=== PATIENT | female | born 1955 | race Two or more races ===

== ENCOUNTER 2020-08-03 10:35 | Inpatient (IN) | payer MEDICAID, OTHER ==
[~2020-08-03] VITALS: Ht 142.2 cm; Wt 82.0 kg
[2020-08-03 11:51] LABS: Basophils # (auto) 0 10 ^3/uL (0-0.2); Eosinophils # (auto) 0.4 10 ^3/uL (0-0.8); Lymphocytes # (auto) 1.8 10 ^3/uL (0.4-5.4); Monocytes # (auto) 0.4 10 ^3/uL (0-1.3); White Blood Cell 4.6 10^3/uL (4.4-10.8)
[2020-08-03 11:53] LABS: Eosinophils % (auto) 9.1 % (0.0-7.0); Hematocrit 41.6 % (36.0-46.0); Hemoglobin 14.2 g/dL (12.2-16.2); Lymphocytes % (auto) 38.8 % (10.0-50.0); Mean Corpuscular Hemoglobin 34.7 pg (28.0-32.0); Mean Corpuscular Hgb Conc. 34.1 g/dL (32.0-36.0); Mean Corpuscular Volume 101.9 fL (80.0-100.0); Monocytes % (auto) 8.1 % (0.0-12.0); Nucleated Red Blood Cells % 0.4 %; Platelet Count (auto) 185 10^3/uL (140-450); Red Blood Cells 4.08 10^6/uL (4.0-5.20); Red Cell Distribution Width 13.1 % (11.8-14.3)
[2020-08-03 11:55] LABS: Urine Bacteria FEW /hpf (None Seen); Urine Blood Negative /uL (Negative); Urine Specific Gravity 1.012 (1.001-1.035); Urine WBC 6 /hpf (0 - 5)
[2020-08-03] MEDS ORDERED: DOPamine 1600MCG/ML D5W 250 ML IV ONE ×2 (12:15→22:55)
[2020-08-03 12:19] LABS: Albumin 3.2 g/dL (3.4-5.0); Anion Gap 3 (5-15); Blood Urea Nitrogen 22 mg/dL (7-18); Calcium 8.5 mg/dL (8.5-10.1); Carbon Dioxide 29 mmol/L (21-32); Chloride 110 mmol/L (98-107); Glucose 82 mg/dL (74-106); Potassium 4.2 mmol/L (3.5-5.1); Sodium 142 mmol/L (136-145)
[2020-08-03 12:24] LABS: Alanine Aminotransferase 42 U/L (13-56); Alkaline Phosphatase 158 U/L (45-117); Aspartate Aminotransferase 24 U/L (15-37); BUN/Creatinine Ratio 23.2; Bilirubin, Total 0.9 mg/dL (0.2-1.0); GFR African American 76 mL/min; GFR Non-African American 63 mL/min; Total Protein 7.3 g/dL (6.4-8.2)
[2020-08-03] MEDS ORDERED: HYDROcodone-ACET 5/325MG TAB PO PRN (16:00)
[2020-08-03] MEDS ORDERED: MORPHINE SULF INJ 2 MG/ML SYRINGE 1ML IV PRN ×2 (16:00)
[2020-08-03] MEDS ORDERED: NITROGLYCERIN 0.4 MG SL TAB SL PRN (16:00)
[2020-08-03] MEDS ORDERED: DOCUSATE SOD 100 MG CAP PO PRN (16:00)
[2020-08-03] MEDS ORDERED: ACETAMINOPHEN 500 MG TAB PO PRN (16:00)
[2020-08-03 16:59] LABS: Cholesterol 213 mg/dL (< 200); HDL Cholesterol 33 mg/dL (40-59); LDL Cholesterol 145 mg/dL (< 100); Triglycerides 341 mg/dL (< 150)
[2020-08-03] MEDS: ONDANSETRON HCL 4 MG/2 ML VIAL IV PRN (20:55)
[2020-08-03] MEDS ORDERED: PROMETHAZINE HCL 25 MG/ML 1ML IV ONE (23:30)
[2020-08-04] VITALS (82 sets, daily range): BP systolic 50–160; BP diastolic 4–91
[2020-08-04] MEDS ORDERED: DOPamine 1600MCG/ML D5W 250 ML IV SCH ×2 (00:15→03:45)
[2020-08-04] MEDS: DOPamine 1600MCG/ML D5W 250 ML IV SCH ×4 (00:18→17:19)
[2020-08-04] MEDS: ONDANSETRON HCL 4 MG/2 ML VIAL IV PRN (08:31)
[2020-08-04 09:08] LABS: Basophils # (auto) 0 10 ^3/uL (0-0.2); Basophils % (auto) 0.5 % (0.0-2.0); Eosinophils # (auto) 0 10 ^3/uL (0-0.8); Hemoglobin 14.7 g/dL (12.2-16.2); Neutrophils # (auto) 6.6 10 ^3/uL (1.6-8.6)
[2020-08-04 09:11] LABS: Eosinophils % (auto) 0.4 % (0.0-7.0); Lymphocytes % (auto) 12.2 % (10.0-50.0); Mean Corpuscular Hemoglobin 35.1 pg (28.0-32.0); Mean Corpuscular Hgb Conc. 34.2 g/dL (32.0-36.0); Mean Corpuscular Volume 102.7 fL (80.0-100.0); Monocytes # (auto) 0.7 10 ^3/uL (0-1.3); Monocytes % (auto) 8.6 % (0.0-12.0); Neutrophils % (auto) 78.3 % (37.0-80.0); Nucleated Red Blood Cells % 0.1 %; Platelet Count (auto) 184 10^3/uL (140-450); Red Blood Cells 4.19 10^6/uL (4.0-5.20); Red Cell Distribution Width 12.7 % (11.8-14.3); White Blood Cell 8.4 10^3/uL (4.4-10.8)
[2020-08-04 09:24] LABS: Albumin 3.4 g/dL (3.4-5.0); Calcium 8.8 mg/dL (8.5-10.1); Magnesium 2.1 mg/dL (1.6-2.6); Potassium 4.3 mmol/L (3.5-5.1)
[2020-08-04 09:30] LABS: Bilirubin, Total 1.6 mg/dL (0.2-1.0); INR 1.03 (0.9-1.15); Partial Thromboplastin Time 26.8 sec (23.0-31.2); Phosphorus 2.7 mg/dL (2.5-4.90); Total Protein 7.7 g/dL (6.4-8.2)
[2020-08-04] MEDS: FAMOTIDINE 20 MG TAB PO SCH (10:00)
[2020-08-04] MEDS ORDERED: PROMETHAZINE HCL 25 MG/ML 1ML ONE (12:28)
[2020-08-04] MEDS ORDERED: ONDANSETRON HCL 4 MG/2 ML VIAL IV PRN (12:30)
[2020-08-04] MEDS ORDERED: PROMETHAZINE HCL 25 MG/ML 1ML IV ONE (12:30)
[2020-08-04 18:42] LABS: Alcohol, Urine < 3.0 mg/dL (0-10); Amphetamine Screen, Urine NEGATIVE (NEGATIVE); Barbiturate Scree,Urine NEGATIVE (NEGATIVE); Benzodiazephine Screen, Urine NEGATIVE (NEGATIVE); Cannabinoid Screen, Urine NEGATIVE (NEGATIVE); Cocaine Screen, Urine NEGATIVE (NEGATIVE); Opiate Scree,Urine NEGATIVE (NEGATIVE); Phencyclidine Screen, Urine NEGATIVE (NEGATIVE)
[2020-08-04] MEDS: ATORVASTATIN 20 MG TAB PO SCH (21:34)
[2020-08-05] VITALS (67 sets, daily range): BP systolic 70–132; BP diastolic 27–68
[2020-08-05 04:58] LABS: Potassium 3.9 mmol/L (3.5-5.1)
[2020-08-05 05:03] LABS: Magnesium 2.1 mg/dL (1.6-2.6)
[2020-08-05 05:08] LABS: Bilirubin, Total 1.7 mg/dL (0.2-1.0)
[2020-08-05] MEDS: DOPamine 1600MCG/ML D5W 250 ML IV SCH ×2 (05:16→14:10)
[2020-08-05] MEDS ORDERED: VANCOMYCIN 1GM/250ML 250 ML IV ONE (11:01)
[2020-08-05] MEDS ORDERED: VANCOMYCIN HCL 1000 MG VL ONE (11:34)
[2020-08-05] MEDS ORDERED: fentaNYL CITRATE 100 MCG/2 ML VL ONE (11:34)
[2020-08-05] MEDS ORDERED: MIDAZOLAM HCL 1MG/1ML-2 ML VIAL ONE (11:35)
[2020-08-05] MEDS ORDERED: LIDOCAINE 2%HCL (LOCAL ANESTH.) INJ 20ML MDV ONE (11:35)
[2020-08-05] MEDS ORDERED: DOPamine 1600MCG/ML D5W 250 ML IV ONE (13:21)
[2020-08-05] MEDS: FAMOTIDINE 20 MG TAB PO SCH (15:41)
[2020-08-05] MEDS: ceFAZolin 1GM/50ML 50 ML IV SCH ×2 (15:41→20:45)
[2020-08-05] MEDS: ATORVASTATIN 20 MG TAB PO SCH (21:21)
[2020-08-06] VITALS (20 sets, daily range): BP systolic 81–117; BP diastolic 39–74
[2020-08-06 04:44] LABS: Lymphocytes # (auto) 1.3 10 ^3/uL (0.4-5.4)
[2020-08-06 04:46] LABS: Basophils # (auto) 0.1 10 ^3/uL (0-0.2); Basophils % (auto) 0.8 % (0.0-2.0); Eosinophils # (auto) 0.2 10 ^3/uL (0-0.8); Eosinophils % (auto) 2.1 % (0.0-7.0); Hematocrit 40.9 % (36.0-46.0); Hemoglobin 13.6 g/dL (12.2-16.2); Lymphocytes % (auto) 16.6 % (10.0-50.0); Mean Corpuscular Hemoglobin 34.9 pg (28.0-32.0); Mean Corpuscular Hgb Conc. 33.4 g/dL (32.0-36.0); Mean Corpuscular Volume 104.7 fL (80.0-100.0); Monocytes % (auto) 12.9 % (0.0-12.0); Neutrophils # (auto) 5.3 10 ^3/uL (1.6-8.6); Neutrophils % (auto) 67.6 % (37.0-80.0); Nucleated Red Blood Cells % 0.1 %; Platelet Count (auto) 159 10^3/uL (140-450); Red Cell Distribution Width 13.2 % (11.8-14.3); White Blood Cell 7.9 10^3/uL (4.4-10.8)
[2020-08-06 04:53] LABS: Calcium 8.7 mg/dL (8.5-10.1); Potassium 3.9 mmol/L (3.5-5.1)
[2020-08-06 04:55] LABS: INR 1.02 (0.9-1.15)
[2020-08-06 04:56] LABS: Magnesium 1.9 mg/dL (1.6-2.6)
[2020-08-06] MEDS: DOPamine 1600MCG/ML D5W 250 ML IV SCH (05:38)
[2020-08-06] MEDS ORDERED: cefTRIAXone 1GM/50ML D5W 50 ML IV SCH (09:00)
[2020-08-06] MEDS: FAMOTIDINE 20 MG TAB PO SCH (10:36)
[2020-08-06] MEDS ORDERED: DOXY-286 PO (13:13)
== END 2020-08-06 15:00 | disposition home or self-care (01) | DRG 171 ==
LOC: ER 10:35 → TELE 10:36 → ICU WEST 08-04 04:00
PROVIDERS: ADMIT Nurse Practitioner Acute Care; ATTEND Internal Medicine
PROC: 0JH606Z Insertion of Pacemaker, Dual Chamber into Chest Subcutaneous Tissue and Fascia, Open Approach (ICD-10-PCS; principal; 2020-08-05)
PROC: 02H63JZ Insertion of Pacemaker Lead into Right Atrium, Percutaneous Approach (ICD-10-PCS; 2020-08-05)
PROC: 02HK3JZ Insertion of Pacemaker Lead into Right Ventricle, Percutaneous Approach (ICD-10-PCS; 2020-08-05)
DX: I49.5 Sick sinus syndrome (principal); I24.9 Acute ischemic heart disease, unspecified; E66.9 Obesity, unspecified; N18.31 Chronic kidney disease, stage 3a; E78.5 Hyperlipidemia, unspecified; I21.A1 Myocardial infarction type 2; N39.0 Urinary tract infection, site not specified; Z20.822 Contact with and (suspected) exposure to COVID-19; I12.9 Hypertensive chronic kidney disease with stage 1 through stage 4 chronic kidney disease, or unspecified chronic kidney disease; Z68.41 Body mass index [BMI] 40.0-44.9, adult
CPT/HCPCS: 33208; 36415; 71045; 71046; 80048; 80053; 80061; 80307; 81001; 82247; 83036; 83735; 83880; 84100; 84132; 84443; 84484; 85025; 85379; 85610; 85730; 86850; 86900; 86901; 87081; 87086; 87426; 93005; 93306; 96365; 99152; 99153; 99291; C1785; G0378; J0690; J0696; J2250; J2405